=== PATIENT | male | born 1945 | race Caucasian/White ===

== ENCOUNTER 2024-01-31 09:44 | Emergency (ER) | payer MEDICARE, MEDICAID ==
[~2024-01-31] VITALS: Ht 177.8 cm; Wt 79.0 kg
[~2024-01-31 09:44] MED LIST: ASPI-1265 PO; CLOP75TA33 PO; FEBU40TA PO; GLIM4TAB7 PO; LISI40TA13 PO; METF-900 PO; METO50TA7 PO; NIFE-34 PO; ZOC40T PO
[2024-01-31] MEDS: acetaminophen 325mg tablet PO ONE (11:04)
[2024-01-31] MEDS: TETanus/Pertussis (Acell)/Diphther VAC/PF (Tdap-Adult) 0.5ml syringe IMVAC ONE (11:05)
[2024-01-31] MEDS: LIDOcaine 1% 30ml preserv. free vial IJ ONE (12:01)
[2024-01-31 13:27] VITALS: BP 119/60; PULSE 63; RESP 17; TEMP 98.9; O2SAT 99
== END 2024-01-31 15:33 | disposition home or self-care (01) ==
LOC: ER 09:45
DX: S51.012A Laceration without foreign body of left elbow, initial encounter (principal); S60.412A Abrasion of right middle finger, initial encounter; S60.414A Abrasion of right ring finger, initial encounter; S80.02XA Contusion of left knee, initial encounter; I25.10 Atherosclerotic heart disease of native coronary artery without angina pectoris; I10 Essential (primary) hypertension; E11.9 Type 2 diabetes mellitus without complications; Z87.891 Personal history of nicotine dependence; Z91.041 Radiographic dye allergy status; Z95.1 Presence of aortocoronary bypass graft; W01.0XXA Fall on same level from slipping, tripping and stumbling without subsequent striking against object, initial encounter; Y93.01 Activity, walking, marching and hiking; Y92.89 Other specified places as the place of occurrence of the external cause; Y99.8 Other external cause status
CPT/HCPCS: 64450; 73080; 73560; 90715; 99284; A6222; A6223; A6258; A6402; A6446; A6449; G0008; J7030; Z7610; 90471

== ENCOUNTER 2024-12-29 17:05 | Emergency (ER) | payer MEDICARE, MEDICAID ==
[~2024-12-29] VITALS: Ht 177.8 cm; Wt 90.9 kg
[~2024-12-29 17:05] MED LIST changes: +ALLO300T8 PO; -FEBU40TA PO; -GLIM4TAB7 PO; -LISI40TA13 PO; +LISI40TA20 PO
--- NOTE | 2024-12-29 17:43 | ELECTROCARDIOGRAPH REPORT ---
[facility] Test Date: 2024-12-29 Test Time: 17:40:47 Pat Name: BRIAN MARTI Department: EMERGENCY ROOM Room: Gender: M Supply Chain Intern: ALIVIA : 1945 Requested By: CORRINA HITCHCOCK Order Number: [id number] Reading MD: Measurements Intervals [place] Rate: 80 P: 53 FL: 154 QRS: 52 QRSD: 116 T: 79 QT: 389 QTc: 449 Interpretive Statements Sinus rhythm Ventricular premature complex Nonspecific intraventricular conduction delay Minimal ST depression, lateral leads Baseline wander in lead(s) V3 Please click the below link to view image of tracing.
[2024-12-29 17:51] LABS: MEAN PLATELET VOLUME 7.8 FL (7.4-10.4); RED CELL DISTRIBUTION WIDTH 16.2 % (11.5-14.5)
[2024-12-29 18:09] LABS: CREATININE 1.19 MG/DL (0.60-1.10); PRO BRAIN NATRIURETIC PEPTIDE 1917 PG/ML (0-450); TOTAL CARBON DIOXIDE 22.3 MMOL/L (24-32); eCRCL 54 ML/MIN; eGFR 59 ML/MIN
--- NOTE | 2024-12-29 18:22 | Physician Documentation ---
History of Present Illness ~ Chief Complaint: Diarrhea Stated Complaint: WEAKNESS Time Seen by MD: 18:02 Primary Medical Doctor: carmen bhakta Mode of Arrival: EMS HPI 79-year-old male, history of diabetes, who presents with 3 weeks of diarrhea. He tells me that for the past 3 weeks he has been having multiple episodes of watery diarrhea daily. He often has an accident in his pants before he can stop it. You came in today because while he was driving he felt lightheaded like he is going to pass out, and felt generally weak. He tells me he did not really eat all day. His blood sugar was lower than normal. He denies any fevers or chills. No chest pain or shortness of breath. No abdominal pain or cramping. No blood in his stool. He has been taking Imodium No recent antibiotic use, travel, or history of diarrhea problems Medication Reconciliation Allergies: Coded Allergies: iodine (Verified Allergy, Unknown, 07/23/24) Uncoded Allergies: NKDA (Allergy, Unknown, 01/31/24) Scheduled Allopurinol (Allopurinol), 1 TAB PO DAILY, (Reported) Aspirin (Aspirin), 81 MG PO DAILY, (Reported) Clopidogrel Bisulfate (Clopidogrel), 75 MG PO DAILY, (Reported) Lisinopril* (Lisinopril*), 40 MG PO BID, (Reported) Metformin Hcl* (Metformin ER*), 500 MG PO BID, (Reported) Metoprolol Succinate* (Toprol Xl*), 50 MG PO DAILY, (Reported) Nifedipine ER* (Nifedipine Er*), 30 MG PO DAILY, (Reported) Simvastatin* (Zocor*), 40 MG PO HS, (Reported) Past Medical History Past Medical History: Coronary Artery Disease, Hypertension, Diabetes Past Surgical History: coronary bypass surgery Patient History: FH: heart disease FATHER, FH: myocardial infarction MOTHER, Alcohol Use: None Drug Use: none Lives with: Family Lives In: Home Occupation: retired Review of Systems Constitutional: Reports: weakness; Denies: fever Gastrointestinal: Reports: diarrhea; Denies: abdominal pain Physical Exam Vital Signs: Temperature: 99.0, Source: Oral, Heart Rate: 82, Respiratory Rate: 18, BP: 141/51, Pulse Oximetry: 100, Weight: 90.900 Oxygen Flow Rate: 0 Physical Exam General: This is a thin older man who is sitting quietly in bed HEENT: Atraumatic, oropharynx appears dry Heart: Regular rate and rhythm, normal-appearing peripheral perfusion Lungs: Clear breath sounds bilateral, normal work of breathing, normal oxygen saturation on room air Abdomen: Soft, nondistended, nontender all quadrants without rebound or guarding Neuro: Alert and oriented, no focal weakness Psychiatric: Calm and cooperative with exam Progress Results/Orders Results/Orders Orders - CHRIS STOLL MD Cult Stool (Enteric Pathogens) (12/29/24 18:23) C Diff Toxin (12/29/24 18:23) Nitroglycerin Sublingual Tab (Nitrostat (12/29/24 20:00) Completed Orders - CHRIS STOLL MD Normal Saline 500ml Iv Soln (Sodium Chlo (12/29/24 18:25) Electrocardiogram (12/29/24 19:57) Azithromycin Tablet (Zithromax Tablet) (12/29/24 23:55) Medications Received in ER Medications (Trade) Dose Ordered Sig/[place] Route PRN Reason Start Time Stop Time Status Last Admin Dose Admin Sodium Chloride 500 ml @ 1,000 mls/hr ONCE ONCE IV 12/29/24 18:25 12/29/24 18:54 DC 12/29/24 19:04 1,000 MLS/HR (Nitrostat SL tablet) 0.4 mg Q5MIN PRN SL chest pain 12/29/24 20:00 12/29/24 20:06 0.4 MG (Zithromax tablet) 1,000 mg ONCE ONCE PO 12/29/24 23:55 12/29/24 23:56 DC 12/30/24 00:20 1,000 MG Vital Signs 12/29/24 12/29/24 12/29/24 12/29/24 17:09 17:17 18:35 19:10 Temp 99.0 Pulse 82 80 84 Resp 18 16 12 B/P (MAP) 141/51 134/50 (78) 138/116 (123) Pulse Ox 100 99 100 O2 Flow Rate 0 12/29/24 21:32 Pulse 102 Resp 14 B/P (MAP) 177/62 (100) Pulse Ox 97 Laboratory Tests Test 12/29/24 17:41 12/29/24 19:55 12/29/24 20:57 12/29/24 23:52 White Blood Count 8.9 Red Blood Count 3.50 L Hemoglobin 10.4 L Hematocrit 31.9 L Mean Corpuscular Volume 91.2 Mean Corpuscular Hemoglobin 29.6 Mean Corpuscular Hemoglobin Concent 32.5 L Red Cell Distribution Width 16.2 H Platelet Count 301 Mean Platelet Volume 7.8 Neutrophils (%) (Auto) 64.5 Lymphocytes (%) (Auto) 20.7 L Monocytes (%) (Auto) 11.3 Eosinophils (%) (Auto) 2.8 Basophils (%) (Auto) 0.7 Neutrophils # (Auto) 5.7 Lymphocytes # (Auto) 1.8 Monocytes # (Auto) 1.0 H Eosinophils # (Auto) 0.2 Basophils # (Auto) 0.1 CBC Comment Sodium Level 139 Potassium Level 4.1 Chloride Level 105 Carbon Dioxide Level 22.3 L Anion Gap 12 Blood Urea Nitrogen 26 H Creatinine 1.19 H Estimated GFR/1.73 m2 59 BUN/Creatinine Ratio 21.8 H Glucose Level 74 Calcium Level 9.4 Troponin I High Sensitivity 60 54 52 Pro-B-Type Natriuretic Peptide 1917 H Albumin 3.6 Chemistry Comments Troponin I High Sens Percent Delta 10 3 Troponin I Hi Sens Absolute Change -6 -2 Re-Evaluation Re-Evaluation : Re-Evaluation: Worsened Progress 8:00 p.m.: On re-evaluation, the patient now is reporting central chest pressure. He tells me he has a history of intermittent chest pressure but has not had any for several months. EKG/XRAY/CT/US/VASC/MRI EKG : Additional Comment I personally interpreted the EKG and this shows: Sinus rhythm, rate 80, PVC, no STEMI Chest X-Ray : Additional Comments I personally interpreted the x-ray, and it shows: Postsurgical changes from past CABG, no focal consolidation or effusion Medical Decision Making Additional Comments Differential includes dehydration, electrolyte derangement, C diff, colitis Assessment The patient presents with several weeks of diarrhea as well as an episode of dizziness and weakness. Per his history and exam, he appears mildly dehydrated and was given IV fluids. Labs show no significant leukocytosis, anemia, or significant acute kidney injury. Cardiac testing shows no evidence of ACS. He did have an episode of chest pain that resolved with nitroglycerin and reports a history of similar. He tells me that he has had an extensive cardiology evaluation and currently has a content curator who told him that he is not a candidate for acute intervention and he will have chronic chest pain. His troponins are normal x3 which is reassuring. On re-evaluation he had no further dizziness or weakness after IV fluids. He did eat without difficulty. The cause of his diarrhea is unknown at this time. Stool studies will be obtained and are pending. The patient will be discharged home with a dose of azithromycin treat his diarrhea, and stool studies pending. Return precautions given. Departure Time of Disposition: 23:56 Disposition: 01 HOME / SELF CARE / HOMELESS Impression: Primary Impression: Diarrhea Additional Impressions: Chest pain with high risk for cardiac etiology Dehydration Condition: Improved Discharge Instructions: Diarrhea, Adult Referrals: NO PRIMARY CARE PROVIDER (PCP) Education Educated: Patient Educated regarding: diagnosis, treatment, need for follow up Signature Scribe Signature: [email or web address] Attestation: CHRIS Mcgregor MD Dec 29, 2024 18:22
--- NOTE | 2024-12-29 18:29 | RADIOLOGY REPORT ---
EXAM: DI CHEST,SINGLE VIEW HISTORY: CP TECHNIQUE: 1 view of the chest COMPARISON: DI CHEST,SINGLE VIEW on DOS: 07/23/24 FINDINGS/IMPRESSION: LUNGS: No pleural effusion, consolidation, or pneumothorax MEDIASTINUM: Normal cardiac size. Postoperative changes related to prior coronary artery bypass graft surgery. BONES: No acute osseous abnormality OTHER: None
[2024-12-29] MEDS: normal saline 500ml IV soln 500 ML IV ONE (19:04)
--- NOTE | 2024-12-29 20:09 | ELECTROCARDIOGRAPH REPORT ---
[facility] Test Date: 2024-12-29 Test Time: 20:05:14 Pat Name: BRIAN MARTI Department: [facility] Patient ID: [facility]-[id number] Room: Gender: M Rehabilitation Program Coordinator: : 1945 Requested By: CHRIS STOLL Order Number: [id number] Reading MD: Measurements Intervals [place] Rate: 99 P: 34 ND: 158 QRS: 51 QRSD: 111 T: 62 QT: 382 QTc: 491 Interpretive Statements Sinus tachycardia Multiple premature complexes, vent & supraven Borderline ST depression, diffuse leads Borderline prolonged QT interval Please click the below link to view image of tracing.
[2024-12-29 23:00] VITALS: BP 143/55; PULSE 85; RESP 16; TEMP 98.1; O2SAT 98
[2024-12-30 08:12] LABS: C DIFF ANTIGEN NEGATIVE (NEGATIVE); C DIFF SPECIMEN=DIARRHEA? ACCEPTABLE; C DIFFICILE TOXINS A&B NEGATIVE (Neg)
== END 2024-12-30 03:15 | disposition home or self-care (01) ==
LOC: ER 17:06
DX: R19.7 Diarrhea, unspecified (principal); R07.9 Chest pain, unspecified; E86.0 Dehydration; E11.9 Type 2 diabetes mellitus without complications; I10 Essential (primary) hypertension; I25.10 Atherosclerotic heart disease of native coronary artery without angina pectoris; Z95.1 Presence of aortocoronary bypass graft; Z88.8 Allergy status to other drugs, medicaments and biological substances; Z79.899 Other long term (current) drug therapy; Z79.84 Long term (current) use of oral hypoglycemic drugs; Z79.82 Long term (current) use of aspirin
CPT/HCPCS: 36415; 71045; 80048; 83880; 84484; 85025; 87045; 87046; 87324; 87449; 93005; 99285; J7030; J7040